=== PATIENT | male | born 1995 | race American Indian/Alaskan Native ===

== ENCOUNTER 2018-11-22 14:39 | Emergency (ER) | payer OTHER ==
[2018-11-22 15:17] VITALS: BP 128/77
--- NOTE | 2018-11-22 15:17 | Emergency Department Report ---
Chief Complaint: Urogenital-Male Stated Complaint: URINATION POWELL/PAIN Time Seen by Provider: 11/22/18 15:15 - HPI History of Present Illness: pt presents with dysuria that began three days ago no penile discharge no lesions/blister no penile pain, no testicular pain patient is sexually active, occ use of protection hx of STD- chlamydia received tx PMHx bipolar, ADHD non drinker + smoker MSE screening note: Focused history and physical exam performed. Due to findings the following was ordered: UA, G/C ED Disposition for MSE Condition: Stable
[2018-11-22] MEDS ORDERED: ROCEPHIN IM ONE (15:36)
[2018-11-22] MEDS ORDERED: ZITHROMAX PO ONE (15:36)
[2018-11-22] MEDS ORDERED: XYLOCAINE 1% MPF 5 mL INFILTRATI ONE (15:36)
--- NOTE | 2018-11-22 15:37 | Emergency Department Report ---
ED Dysuria HPI - HPI Chief Complaint: Urogenital-Male Stated Complaint: URINATION POWELL/PAIN Time Seen by Provider: 11/22/18 15:15 Duration: 1 Day Symptoms: Dysuria: Yes, Frequency: No, Suprapubic Pain: No, Flank Pain: No, Fever: No, Hematuria: No, Abdominal Pain: No, Previous UTI's: No Other History: 1 day hx of penile drainage. concerned for sti exposure ED Review of Systems ROS: Stated complaint: URINATION POWELL/PAIN Other details as noted in HPI Comment: All other systems reviewed and negative ED Past Medical Hx - Past Medical History Hx Congestive Heart Failure: No Hx Diabetes: No Hx Psychiatric Treatment: Yes (bipolar) Hx Asthma: Yes Hx COPD: No Hx HIV: Yes Additional medical history: Crohn's - Surgical History Past Surgical History?: No - Social History Smoking Status: Current Some Day Smoker Substance Use Type: Alcohol, Marijuana - Medications Home Medications: Home Medications Medication Instructions Recorded Confirmed Last Taken Type No Known Home Medications [No 02/23/15 02/23/15 Unknown History Reported Home Medications] Dysuria Exam - Exam General: Vital signs noted. No distress. Alert and acting appropriately. Exam: Yes Moist Mucous Membranes, No CVA Tenderness, No Abdominal Tenderness, No Rigidity or Guarding ED Course Vital Signs 11/22/18 15:15 Temperature 98.0 F Pulse Rate 62 Respiratory 19 Rate Blood Pressure 128/77 [Left] O2 Sat by Pulse 100 Oximetry ED Medical Decision Making - Medical Decision Making STI treated due to community risk given rocephin and azithromycin Vital Signs 11/22/18 15:15 Temperature 98.0 F Pulse Rate 62 Respiratory 19 Rate Blood Pressure 128/77 [Left] O2 Sat by Pulse 100 Oximetry Critical care attestation.: If time is entered above; I have spent that time in minutes in the direct care of this critically ill patient, excluding procedure time. ED Disposition Clinical Impression: STI (sexually transmitted infection) Disposition: DC-01 TO HOME OR SELFCARE Is pt being admited?: No Does the pt Need Aspirin: No Condition: Stable Instructions: Safe Sex (ED) Referrals: [facility] [Outside] - 3-5 Days Time of Disposition: 15:35
[2018-11-22 15:58] LABS: Bilirubin,Urine NEG (Negative); Blood,Urine NEG (Negative); Color,Urine Yellow (Yellow); Mucus,Urine FEW /HPF; Protein,Urine <15 mg/dL mg/dL (Negative)
== END 2018-11-22 16:00 | disposition home or self-care (01) ==
LOC: ED 14:39
DX: A64 Unspecified sexually transmitted disease (principal); F31.9 Bipolar disorder, unspecified; J45.909 Unspecified asthma, uncomplicated; F17.200 Nicotine dependence, unspecified, uncomplicated; F12.10 Cannabis abuse, uncomplicated; K50.90 Crohn's disease, unspecified, without complications
CPT/HCPCS: 81001; 96372; 99283; J0696